=== PATIENT | male | born 1945 | race Caucasian/White ===

== ENCOUNTER 2017-11-10 08:24 | Emergency (ER) | payer MEDICARE ==
[2017-11-10] MEDS ORDERED: LIDOCAINE VISCOUS 2% 15 ML UDC MM STA (08:38)
[2017-11-10] MEDS ORDERED: MAG HYDROX/AL HYDROX/SIMETH 30 ML UDC PO STA (08:38)
--- NOTE | 2017-11-10 08:41 | ED Physician Documentation ---
PD HPI ABD PAIN - Stated complaint Stated Complaint: ABD PX - Chief complaint Chief Complaint: Abd Pain - History obtained from History obtained from: Patient, Family - History of Present Illness Timing - onset: Enter time (429), Today Timing - duration: Hours Timing - details: Abrupt onset, Still present Quality: Sharp, Pain Location: RUQ, Epigastric, LUQ Radiation: Upper back Improved by: Laying still Worsened by: Moving, Breathing, Position, Palpation Associated symptoms: Nausea Similar symptoms before: Diagnosis (gastritis and atypical chest pain) Review of Systems Constitutional: denies: Fever Eyes: denies: Decreased vision Ears: denies: Ear pain Nose: denies: Congestion Throat: denies: Sore throat Cardiac: denies: Chest pain / pressure, Palpitations Respiratory: denies: Dyspnea, Cough GI: reports: Abdominal Pain, Nausea. denies: Vomiting, Constipation, Diarrhea : denies: Dysuria, Frequency Skin: denies: Rash, Lesions Musculoskeletal: reports: Back pain. denies: Neck pain, Extremity pain PD PAST MEDICAL HISTORY - Past Medical History Past Medical History: Yes Cardiovascular: Hypertension Endocrine/Autoimmune: Type 2 diabetes : Kidney stones - Past Surgical History Past Surgical History: Yes General: Appendectomy Ortho: Other - Present Medications Home Medications: Ambulatory Orders Medication Instructions Recorded Confirmed Lisinopril [Prinivil] 10 mg PO 04/30/16 Metformin HCl 1,000 mg PO 04/30/16 Omeprazole [PriLOSEC] 20 mg PO DAILY 04/30/16 04/30/16 Testosterone Cypionate 140 mg IM 04/30/16 [Depo-Testosterone] Amox/Clav 875/125 [Augmentin] 1 each PO Q12H #14 tablet 11/10/17 HYDROcod/ACETAM 5/325 [[place] 5/325] 1 - 2 ea PO Q6H PRN #15 tablet 11/10/17 - Allergies Allergies/Adverse Reactions: Allergies Allergy/AdvReac Type Severity Reaction Status Date / Time No Known Drug Allergies Allergy Verified 04/30/16 16:52 - Social History Does the pt smoke?: No Smoking Status: Never smoker Does the pt drink ETOH?: Yes - Immunizations Immunizations are current?: Yes PD ED PE NORMAL - Vitals Vital signs reviewed: Yes (hypertensive ) - General General: Alert and oriented X 3, Well developed/nourished, Other (72 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 ) - HEENT HEENT: Atraumatic, PERRL, EOMI - Neck Neck: Supple, no meningeal sign - Cardiac Cardiac: RRR, No murmur - Respiratory Respiratory: No respiratory distress, Clear bilaterally - Abdomen Abdomen: Soft, Other (eipgastric and RUQ tenderness to palpation diffuse and not specifically reproducible. ) - Back Back: No CVA TTP, No spinal TTP - Derm Derm: Normal color, Warm and dry, No rash - Extremities Extremities: No deformity, No edema - Neuro Neuro: No motor deficit, No sensory deficit Eye Opening: Spontaneous Motor: Obeys Commands Verbal: Oriented GCS Score: 15 - Psych Psych: Normal mood Results - Vitals Vitals: Vital Signs - 24 hr 11/10/17 11/10/17 11/10/17 08:27 09:22 10:30 Temperature 35.4 C L Heart Rate 52 L 48 L 60 Respiratory 17 18 16 Rate Blood Pressure 186/80 H 168/80 H 152/92 H O2 Saturation 99 98 94 11/10/17 11:35 Temperature Heart Rate 67 Respiratory 18 Rate Blood Pressure 172/89 H O2 Saturation 100 Oxygen O2 Source Room air - EKG (time done) 0857 Rate: Rate (enter#) (52) Rhythm: Sinus bradycardia QRS: LVH Ischemia: Non specific changes Other comments: Other comments (early transition) Compare to prior EKG: Changed from prior EKG (SPT 04-30-16 the rate has increased and the T waves in the inferior leads are flattened. ) Computer interpretation: Agree with computer - Labs Labs: Laboratory Tests 11/10/17 11/10/17 11/10/17 09:00 09:00 09:00 WBC 14.1 H RBC 5.68 Hgb 16.8 Hct 51.2 MCV 90.1 MCH 29.6 MCHC 32.9 RDW 15.1 H Plt Count 221 MPV 8.1 Neut # 11.6 H Lymph # 1.3 L [place] # 0.9 Eos # 0.1 Baso # 0.2 H Absolute Nucleated RBC 0.00 Nucleated RBC % 0.0 Sodium 136 Potassium 4.0 Chloride 99 L Carbon Dioxide 26 Anion Gap 11.0 BUN 23 H Creatinine 1.2 Estimated GFR (MDRD) 60 L Glucose 285 H Calcium 9.2 Total Bilirubin 0.8 AST 27 ALT 23 Alkaline Phosphatase 46 Troponin I < 0.04 Total Protein 7.5 Albumin 4.9 Globulin 2.6 Albumin/Globulin Ratio 1.9 Lipase 18 L - Rads (name of study) ultrasound gallbladder Radiology: Prelim report reviewed (Impression: 1. Cholelithiasis and sludge filling the gallbladder. No definite sonographic evidence of acute cholecystitis. The common bile duct diameter is upper limit of normal for age. 2. No intrahepatic biliary dilation. 3., Diffuse increased echogenicity of the liver consistent with diffuse hepatic steatosis.), EMP read indepedently, See rad report PD MEDICAL DECISION MAKING - ED course Complexity details: reviewed old records, reviewed results, re-evaluated patient , considered differential, d/w patient, d/w family ED course: 72-year-old male with acute abdominal pain has had multiple episodes similar and he has been worked up and gastritis has been found. Here in the emergency department the patient looks uncomfortable and bedside ultrasound shows what appears to be multiple stones in the gallbladder with gallbladder sludge present. Initially he is administered viscous lidocaine Mylanta and has no improvement in his pain. I interpreted this to indicate his pain was not coming from gastritis. He was administered Toradol intravenously with only minimal pain relief and he was subsequently administered hydrocodone and Zofran with good relief of his pain. A formal ultrasound of the gallbladder demonstrated similar findings and there was no evidence of cholecystitis there was no free fluid and no gallbladder wall thickening. The patient's white blood cell count was elevated and in consultation with his primary care doctor antibiotics were prescribed. The patient will follow up with his surgeon at [place]. Departure - Departure Disposition: Home, Self Care Clinical Impression: Gallstones without obstruction of gallbladder Qualifiers: Cholelithiasis location: gallbladder Cholecystitis presence: without cholecystitis Qualified Code(s): K80.20 - Calculus of gallbladder without cholecystitis without obstruction Hyperglycemia due to type 2 diabetes mellitus Qualifiers: Diabetes mellitus senior care insulin use: without terminologist use Qualified Code(s ): E11.65 - Type 2 diabetes mellitus with hyperglycemia Condition: Stable Instructions: ED Hyperglycemia Diabetic, ED Gallstone W Biliary Colic Follow-Up: MICKY ROCA MD [Primary Care Provider] - Prescriptions: Amox/Clav 875/125 [Augmentin] 1 each PO Q12H #14 tablet HYDROcod/ACETAM 5/325 [[place] 5/325] 1 - 2 ea PO Q6H PRN #15 tablet PRN Reason: Pain Discharge Date/Time: 11/10/17 12:11
[2017-11-10] MEDS ORDERED: KETOROLAC 60 MG/2 ML VIAL IVP STA (09:06)
[2017-11-10 09:15] LABS: BASOPHILS # (AUTO) 0.2 10^3/uL (0.0-0.1); BASOPHILS % (AUTO) 1.5 %; EOSINOPHILS # (AUTO) 0.1 10^3/uL (0.0-0.7); EOSINOPHILS % (AUTO) 0.5 %; HGB - HEMOGLOBIN 16.8 g/dL (14.0-18.0); LYMPHOCYTES # (AUTO) 1.3 10^3/uL (1.5-3.5); MEAN CORPUSCULAR HEMOGLOBIN 29.6 pg (27.0-31.0); MEAN CORPUSCULAR HGB CONC 32.9 g/dL (32.0-36.0); MEAN CORPUSCULAR VOLUME 90.1 fL (80.0-94.0); MEAN PLATELET VOLUME 8.1 fL (7.4-11.4); MONOCYTES # (AUTO) 0.9 10^3/uL (0.0-1.0); MONOCYTES % (AUTO) 6.4 %; NEUTROPHILS # (AUTO) 11.6 10^3/uL (1.5-6.6); NEUTROPHILS % (AUTO) 82.6 %; PLT - PLATELET COUNT 221 10^3/uL (130-450); RED BLOOD COUNT 5.68 10^6/uL (4.70-6.10); RED CELL DISTRIBUTION WIDTH 15.1 % (12.0-15.0); WHITE BLOOD COUNT 14.1 x10^3/uL (4.8-10.8)
[2017-11-10] MEDS ORDERED: ONDANSETRON 4 MG/2 ML VIAL IVP STA (09:22)
[2017-11-10] MEDS ORDERED: HYDROmorphone 1 MG/ML SYRINGE IVP STA (09:22)
[2017-11-10 09:26] LABS: ALBUMIN 4.9 g/dL (3.2-5.5); ALBUMIN/GLOBULIN RATIO 1.9 (1.0-2.2); BILIRUBIN,TOTAL 0.8 mg/dL (0.2-1.0); CALCIUM 9.2 mg/dL (8.5-10.3); CREATININE 1.2 mg/dL (0.6-1.2); TOTAL PROTEIN 7.5 g/dL (6.7-8.2)
--- NOTE | 2017-11-10 10:40 | Ultrasound Report ---
EXAM: ABDOMEN ULTRASOUND LIMITED, RUQ EXAM DATE: 11/10/2017 10:09 AM. CLINICAL HISTORY: Right upper quadrant abdominal pain. COMPARISON: CT of the abdomen and pelvis without contrast 09/24/2012. TECHNIQUE: Real-time scanning was performed with static images obtained. FINDINGS: Liver: There is diffuse increased echogenicity of the liver consistent with diffuse fatty infiltratio n. No focal abnormality identified. The right lobe of the liver measures up to 17.2 cm. Main portal v ein flow: Hepatopetal. Gallbladder: The gallbladder is filled with sludge. Multiple small stones are present. No definite wa ll thickening. No sonographic Desouza sign. Biliary System: CBD measures 7.6 mm. No intrahepatic ductal dilatation. Other: No right-sided hydronephrosis. IMPRESSION: 1. Cholelithiasis and sludge filling the gallbladder. No definite sonographic evidence of acute jessa cystitis. 2. The common bile duct diameter is at the upper limit of normal for age. No intrahepatic biliary dil atation. 3. Diffuse increased echogenicity of the liver consistent with diffuse hepatic steatosis. [facility] Referring Provider Line: [phone] SITE ID: [id number]
[2017-11-10 11:36] VITALS: BP 172/89
== END 2017-11-10 12:11 | disposition home or self-care (01) ==
LOC: ED 08:24
DX: K80.20 Calculus of gallbladder without cholecystitis without obstruction (principal); E11.65 Type 2 diabetes mellitus with hyperglycemia; I10 Essential (primary) hypertension; Z79.84 Long term (current) use of oral hypoglycemic drugs
CPT/HCPCS: 36415; 76705; 80053; 83690; 84484; 85025; 93005; 96374; 96375; 99284; A9270; J1170

== ENCOUNTER 2020-10-03 16:37 | Emergency (ER) | payer MEDICARE, OTHER ==
--- NOTE | 2020-10-03 17:02 | ED Physician Documentation ---
History of Present Illness - Stated complaint Stated Complaint: RT HAND LAC - Chief complaint Chief Complaint: Laceration - History obtained from History obtained from: Patient - History of Present Illness Timing: Today Pain level max: 0 Pain level now: 0 - Additonal information Additional information: R middle finger cut on a mandolin. Unable to stop the bleeding. Td UTD. NVI. Better with pressure. Worse with movement. Patient applied a silver nitrate pad at home to the finger. Wrapped the finger tightly and came in for evaluation Review of Systems Constitutional: denies: Fever, Chills Skin: denies: Rash PD PAST MEDICAL HISTORY - Past Medical History Cardiovascular: Hypertension Endocrine/Autoimmune: Type 2 diabetes : Kidney stones - Past Surgical History Past Surgical History: Yes General: Appendectomy Ortho: Other - Present Medications Home Medications: Ambulatory Orders Medication Instructions Recorded Confirmed Lisinopril [Prinivil] 10 mg PO 04/30/16 Metformin HCl 1,000 mg PO 04/30/16 Omeprazole [PriLOSEC] 20 mg PO DAILY 04/30/16 04/30/16 Testosterone Cypionate 140 mg IM 04/30/16 [Depo-Testosterone] Amox/Clav 875/125 [Augmentin] 1 each PO Q12H #14 tablet 11/10/17 HYDROcod/ACETAM 5/325 [[place] 5/325] 1 - 2 ea PO Q6H PRN #15 tablet 11/10/17 - Allergies Allergies/Adverse Reactions: Allergies Allergy/AdvReac Type Severity Reaction Status Date / Time No Known Drug Allergies Allergy Verified 10/03/20 16:49 - Social History Does the pt smoke?: No Smoking Status: Never smoker Does the pt drink ETOH?: Yes - Immunizations Immunizations are current?: Yes PD ED PE NORMAL - Vitals Vital signs reviewed: Yes - General General: Alert and oriented X 3, No acute distress - HEENT HEENT: Moist mucous membranes - Derm Derm: Warm and dry - Extremities Extremities: Other (0.2cm avulsion, shallow to the tip of the R 3rd digit.NVI. No bony injury.) - Neuro Neuro: Alert and oriented X 3 - Psych Psych: Normal mood, Normal affect Results - Vitals Vitals: Vital Signs - 24 hr 10/03/20 10/03/20 16:46 17:35 Temperature 35.9 C L 36.5 C Heart Rate 73 70 Respiratory 16 16 Rate Blood Pressure 170/81 H 150/80 H O2 Saturation 97 99 Oxygen O2 Source Room air Procedures - General procedure General procedure: Finger tourniquet was placed. Wound was cleansed. Silver nitrate removed. Dermabond was applied to seal the wound. The wound was then bandaged and a finger splint placed around the area to protect the wound. Tourniquet was removed prior to bandaging. NVI PD MEDICAL DECISION MAKING - ED course Complexity details: considered differential, d/w patient ED course: Patient with a small fingertip avulsion. Dermabond applied. No further bleeding. Bandaging applied. Warnings of infection and instructions on wound care given at bedside. Also counseled on how to minimize scarring. Patient counseled regarding signs and symptoms for which I believe and urgent re- evaluation would be necessary. Patient with good understanding of and agreement to plan and is comfortable going home at this time This document was made in part using voice recognition software. While efforts are made to proofread this document, sound alike and grammatical errors may occur. Departure - Departure Disposition: 01 Home, Self Care Clinical Impression: Fingertip avulsion Qualifiers: Encounter type: initial encounter Qualified Code(s): S61.209A - Unspecified open wound of unspecified finger without damage to nail, initial encounter Condition: Good Instructions: ED Laceration Amputation Finger Tip Open Tx Follow-Up: Ambreen Delaney MD [Primary Care Provider] - Within 1 week Comments: Keep the wound clean. The glue will fall off on its own. Follow-up with your doctor for further care. Return if you notice redness, swelling or drainage from the wound. Discharge Date/Time: 10/03/20 17:35
[2020-10-03 17:36] VITALS: BP 150/80
== END 2020-10-03 17:35 | disposition home or self-care (01) ==
LOC: ED 16:37
DX: S61.212A Laceration without foreign body of right middle finger without damage to nail, initial encounter (principal); W27.4XXA Contact with kitchen utensil, initial encounter; Y93.G1 Activity, food preparation and clean up; Y92.009 Unspecified place in unspecified non-institutional (private) residence as the place of occurrence of the external cause; I10 Essential (primary) hypertension; E11.9 Type 2 diabetes mellitus without complications; Z79.84 Long term (current) use of oral hypoglycemic drugs
CPT/HCPCS: 99281; 99282

== ENCOUNTER 2020-12-28 08:00 | Outpatient (CLI) | payer MEDICARE, OTHER | END 2020-12-28 23:59 | disposition home or self-care (01) | LOC: LAB.R 08:00 | DX: R19.4 Change in bowel habit (principal) | CPT/HCPCS: 87493 ==

== ENCOUNTER 2022-12-22 22:41 | Outpatient (CLI) | payer MEDICARE, OTHER | END 2022-12-22 23:59 | disposition critical access hospital (66) | LOC: EMS 22:41 | DX: R55 Syncope and collapse (principal); R56.9 Unspecified convulsions; M54.2 Cervicalgia; W18.39XA Other fall on same level, initial encounter; Y92.000 Kitchen of unspecified non-institutional (private) residence as the place of occurrence of the external cause | CPT/HCPCS: A0425; A0427 ==

== ENCOUNTER 2022-12-22 23:00 | Emergency (ER) | payer MEDICARE, OTHER ==
--- NOTE | 2022-12-22 23:03 | ED Physician Documentation ---
PD HPI SYNCOPE - Stated complaint Stated Complaint: SYNCOPE - History obtained from History obtained from: Patient, Family - History of Present Illness Witnessed: Witnessed - Additional information Additional information: BIBA. HPI from patient as well as family (spouse) and EMS. Patient says he was standing in the kitchen at home after having eaten dinner tonight. He describes brief prodrome of generalized weakness and bilateral vision becoming uniform field of white. He says he then next remembers being on the floor with family tending to him. He remembers them helping him up into a chair. Spouse (in ED at bedside) says patient appeared very pale when the event happened, and that he did not fall rapidly to ground, but, rather, rapidly went down whilst helping himself ease to ground by holding on to cabinetry; his descent was fast enough that he did appear to strike the back of his head against a lower cabinet. She says there was not a complete LOC although he did seem less responsive. She also describes spasms of body stiffness but without any sustained tonic stiffness nor any clonic jerking activity. She says the first blood pressure they could measure was 96/54. EMS says they had BP reading of 108/70 on their arrival, with next SBP 102. FSBS 123 per EMS. At the time of this HPI, patient says he feels fine/asymptomatic. He notes mild , dull discomfort right posterior scalp at occiput where he thinks he might have hit the cabinet. He denies h/o similar episode. Denies chest pain, denies shortness of breath. Review of Systems Constitutional: denies: Fever Cardiac: reports: Reviewed and negative Respiratory: reports: Reviewed and negative GI: reports: Reviewed and negative : denies: Dysuria, Frequency, Incontinent Musculoskeletal: reports: Reviewed and negative Neurologic: reports: Near syncope. denies: Focal weakness, Numbness, Confused, Head injury, LOC PD PAST MEDICAL HISTORY - Past Medical History Past Medical History: Yes Cardiovascular: Hypertension - Present Medications Home Medications: Ambulatory Orders Medication Instructions Recorded Confirmed Metformin HCl 1,000 mg PO 04/30/16 Omeprazole [PriLOSEC] 20 mg PO DAILY 04/30/16 04/30/16 Testosterone Cypionate 140 mg IM 04/30/16 [Depo-Testosterone] lisinopriL [Prinivil] 10 mg PO 04/30/16 Amox/Clav 875/125 [Augmentin] 1 each PO Q12H #14 tablet 11/10/17 HYDROcod/ACETAM 5/325 [[place] 5/325] 1 - 2 ea PO Q6H PRN #15 tablet 11/10/17 - Allergies Allergies/Adverse Reactions: Allergies Allergy/AdvReac Type Severity Reaction Status Date / Time No Known Drug Allergies Allergy Verified 12/22/22 23:21 PD ED PE NORMAL - Vitals Vital signs reviewed: Yes - General General: Alert and oriented X 3, No acute distress, Well developed/nourished - HEENT HEENT: Atraumatic, PERRL, EOMI, Moist mucous membranes - Neck Neck: Supple, no meningeal sign - Cardiac Cardiac: RRR, No murmur, No gallop, No rub - Respiratory Respiratory: No respiratory distress, Clear bilaterally - Abdomen Abdomen: Soft, Non tender, Non distended - Derm Derm: Normal color, Warm and dry - Extremities Extremities: No deformity, Normal ROM s pain - Neuro Neuro: Alert and oriented X 3, 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 Relevant findings are: Rate: Rate (enter#) (67) [place]: LAD Intervals: Normal NE QRS: Normal Ischemia: Normal ST segments, Q waves (III, aVF), T wave inversion (III, aVF (flat T wave II), inverted V5, V6), Other (j-point elevation V2, minimal V3) Compare to prior EKG: Other (similar Q waves (III, aVF) and j-point elevations (V2, V3) on 04/30/16, and similar T wave findings on 11/10/17) - Labs Labs: Laboratory Tests 12/22/22 12/22/22 12/22/22 23:08 23:08 23:08 WBC 9.6 RBC 5.21 Hgb 14.6 Hct 45.4 MCV 87.1 MCH 28.0 MCHC 32.2 RDW 14.6 Plt Count 246 MPV 9.5 Neut # (Auto) 6.4 Lymph # (Auto) 2.1 [place] # (Auto) 0.7 Eos # (Auto) 0.2 Baso # (Auto) 0.1 Absolute Nucleated RBC 0.00 Nucleated RBC % 0.0 Sodium 139 Potassium 4.0 Chloride 103 Carbon Dioxide 27 Anion Gap 9.0 BUN 21 H Creatinine 1.4 H Estimated GFR (MDRD) 49 L Glucose 156 H Calcium 9.2 Total Bilirubin 0.5 AST 21 ALT 22 Alkaline Phosphatase 55 Troponin I High Sens 5.6 Total Protein 6.6 L Albumin 3.8 Globulin 2.8 Albumin/Globulin Ratio 1.4 Lipase 36 - Rads (name of study) CTH Relevant Findings:: Prelim report reviewed, EMP independent interpretation of test (I reviewed these images and my interpretation is no evidence of emergent process including SAH, skull fracture, mass/mass effect), See rad report PD Medical Decision Making - ED course Complexity details: reviewed results, re-evaluated patient, considered differential, d/w patient, d/w family ED course: Near-syncopal episode W[employer] WORK[employer] with borderline-low readings in field, although first reading by family was only after patient had recovered from the most prominent/noticeable signs/symptoms. He has no concerning nor diagnostic findings on tonights tests including hs-cTN. CTH without remarkable findings regarding the event or other emergent process (radiology notes incidental finding of opacified left maxillary sinus). Results d/w patient/spouse. Cause of his near-syncope is not apparent at this time. I instructed him to contact his PMD to arrange for next available appointment for reevaluation, and return precautions discussed Departure - Departure Disposition: 01 Home, Self Care Clinical Impression: Syncope Qualifiers: Syncope type: unspecified Qualified Code(s): R55 - Syncope and collapse Condition: Good Instructions: ED Fainting Unkn Cause Comments: There were no concerning or diagnostic findings on tonight's tests. As we discussed, your kidney function tests were mildly elevated (BUN of 21, creatinine of 1.4. I am including these test results here so that you can relay these results to your primary care provider when you follow-up). These kidney function test abnormalities would not explain any symptoms and can be reevaluated by your primary care provider. Contact your primary care provider when their office is next open to arrange for the next available appointment for follow-up. Discharge Date/Time: 12/23/22 02:47
[2022-12-22 23:25] LABS: BASOPHILS # (AUTO) 0.1 10^3/uL (0.0-0.1); BASOPHILS % (AUTO) 0.8 %; EOSINOPHILS # (AUTO) 0.2 10^3/uL (0.0-0.7); EOSINOPHILS % (AUTO) 2.3 %; HCT - HEMATOCRIT 45.4 % (42.0-52.0); HGB - HEMOGLOBIN 14.6 g/dL (14.0-18.0); LYMPHOCYTES # (AUTO) 2.1 10^3/uL (1.5-3.5); LYMPHOCYTES % (AUTO) 22.2 %; MEAN CORPUSCULAR HGB CONC 32.2 g/dL (32.0-36.0); MEAN CORPUSCULAR VOLUME 87.1 fL (80.0-94.0); MEAN PLATELET VOLUME 9.5 fL (7.4-11.4); MONOCYTES # (AUTO) 0.7 10^3/uL (0.0-1.0); MONOCYTES % (AUTO) 6.9 %; NEUTROPHILS # (AUTO) 6.4 10^3/uL (1.5-6.6); NEUTROPHILS % (AUTO) 67.4 %; PLT - PLATELET COUNT 246 10^3/uL (130-450); RED BLOOD COUNT 5.21 10^6/uL (4.70-6.10); RED CELL DISTRIBUTION WIDTH 14.6 % (12.0-15.0); WHITE BLOOD COUNT 9.6 x10^3/uL (4.8-10.8)
[2022-12-23 00:04] LABS: ALBUMIN 3.8 g/dL (3.2-5.5); ALBUMIN/GLOBULIN RATIO 1.4 (1.0-2.2); BILIRUBIN,TOTAL 0.5 mg/dL (0.2-1.0); CALCIUM 9.2 mg/dL (8.5-10.3); CREATININE 1.4 mg/dL (0.6-1.2); TOTAL PROTEIN 6.6 g/dL (6.7-8.2)
--- NOTE | 2022-12-23 00:59 | CT Report ---
PROCEDURE: HEAD WO INDICATIONS: syncope with seizure-like activity, head injury TECHNIQUE: Noncontrast 4.5 mm thick angled axial sections acquired from the foramen magnum to the vertex. For r adiation dose reduction, the following was used: automated exposure control, adjustment of mA and/or kV according to patient size. COMPARISON: None. FINDINGS: Image quality: Excellent. CSF spaces: Basal cisterns are patent. No extra-axial fluid collections. Ventricles are normal in size and shape. Brain: No midline shift. No intracranial masses or hemorrhage. Zelaya-white matter interface is norm al. Skull and face: Calvarium and visualized facial bones are intact, without suspicious lesions. Sinuses: Visualized sinuses and mastoids are clear on the right but there is a small caliber of the left maxillary sinus which appears chronically opacified. IMPRESSION: Hypoplasia of the left maxillary sinus, no acute trauma found. Reviewed by: Dominic Bolanos MD on 12/23/2022 12:58 AM PDT Approved by: Dominic Bolanos MD on 12/23/2022 12:58 AM PDT Station ID: [id number]
[2022-12-23 02:48] VITALS: BP 125/62
== END 2022-12-23 02:47 | disposition home or self-care (01) ==
LOC: EDUNIT# → ED 23:00
DX: R55 Syncope and collapse (principal); R79.89 Other specified abnormal findings of blood chemistry; J34.89 Other specified disorders of nose and nasal sinuses
CPT/HCPCS: 36415; 80053; 83690; 84484; 85025; 93005; 99283; 99284

== ENCOUNTER 2023-06-07 22:38 | Outpatient (CLI) | payer MEDICARE, OTHER | END 2023-06-07 22:39 | disposition short-term general hospital (02) | LOC: EMS 22:38 | DX: R55 Syncope and collapse (principal); I95.9 Hypotension, unspecified; R19.7 Diarrhea, unspecified | CPT/HCPCS: A0425; A0429 ==

== ENCOUNTER 2024-01-23 10:17 | Outpatient (CLI) | payer MEDICARE, OTHER ==
--- NOTE | 2024-01-23 15:21 | XRAY Report ---
PROCEDURE: Foot 3+V LT INDICATIONS: PAIN IN LEFT FOOT, concern for foreign body at BB marker site TECHNIQUE: 3 views of the foot were acquired. COMPARISON: None. FINDINGS: Bones: No fractures or dislocations. No suspicious bony lesions. Tiny retrocalcaneal enthesophyte. Soft tissues: No tibiotalar joint effusion. Achilles tendon appears normal. No radiodense foreign body. IMPRESSION: No acute bony abnormality. No radiodense foreign body. Reviewed by: Dorothy Shea MD, PhD on 01/23/2024 3:20 PM PDT Approved by: Dorothy Shea MD, PhD on 01/23/2024 3:20 PM PDT Station ID: [id number]
== END 2024-01-23 10:18 | disposition home or self-care (01) ==
LOC: DI.S 10:17
PROVIDERS: ATTEND Registered Nurse
DX: M79.672 Pain in left foot (principal)

== ENCOUNTER 2024-05-12 10:45 | Emergency (ER) | payer MEDICARE, OTHER ==
[2024-05-12 11:21] VITALS: O2SAT 100
--- NOTE | 2024-05-12 12:49 | Ultrasound Report ---
PROCEDURE: Duplex Ext Veins Right INDICATIONS: swelling/pain 2wks post-op TECHNIQUE: Real-time imaging, as well as color and pulse Doppler interrogation, were performed of the lower extr emity deep veins from the inguinal ligament to the popliteal fossa. Attempted visualization of the ca lf veins was performed. COMPARISON: None. FINDINGS: The deep veins are normally compressible, and free of intraluminal thrombus. Color and pu lse Doppler demonstrate normal phasic intraluminal flow. There is normal augmentation response to di stal compression maneuver. IMPRESSION: No deep venous thrombosis of the right lower extremity. Reviewed by: Alexei Ludwig MD on 05/12/2024 12:47 PM PDT Approved by: Alexei Ludwig MD on 05/12/2024 12:47 PM PDT Station ID: [id number]
--- NOTE | 2024-05-12 12:59 | ED Physician Documentation ---
History of Present Illness - Stated complaint Stated Complaint: RT LEG SWELLING, TENDERNESS - Chief complaint Chief Complaint: Ext Problem - Additonal information Additional information: Patient is a 78-year-old male presenting to the emergency department after having right knee arthroplasty performed about [address] Carlson. Patient was Given Keflex for a week postsurgery. He notes he was doing fine until 3 days ago he developed worsening leg swelling. He notes around this time he also was not wearing his compression stocking as much and had been working on walking and bearing weight on his right leg. He denies any fevers or chills no discharge from the wound. No significant redness to his leg. Patient went to physical therapy today they instructed him to have ultrasound of his right leg he called his orthopedic PA and they agreed with this assessment without seeing patient.Patient denies any chest pain or shortness of breath with his symptoms. He has been taking aspirin and Plavix with his symptoms as well. PD PAST MEDICAL HISTORY - Past Medical History Past Medical History: Yes Cardiovascular: Hypertension, Coronary artery disease, Arrhythmia Respiratory: None Neuro: None Endocrine/Autoimmune: Type 2 diabetes GI: None : Kidney stones HEENT: None Psych: None Musculoskeletal: None Derm: None - Past Surgical History Past Surgical History: Yes General: Cholecystectomy, Appendectomy Ortho: Other Cardiovascular: Pacemaker - Present Medications Home Medications: Ambulatory Orders Medication Instructions Recorded Confirmed Metformin HCl 1,000 mg PO 04/30/16 Omeprazole [PriLOSEC] 20 mg PO DAILY 04/30/16 04/30/16 Testosterone Cypionate 140 mg IM 04/30/16 [Depo-Testosterone] lisinopriL [Prinivil] 10 mg PO 04/30/16 Amox/Clav 875/125 [Augmentin] 1 each PO Q12H #14 tablet 11/10/17 HYDROcod/ACETAM 5/325 [[place] 5/325] 1 - 2 ea PO Q6H PRN #15 tablet 11/10/17 Compress.stocking,Knee,Reg,Med 1 each MC DAILY #1 each 05/12/24 [T.e.d. Anti-Embolism Stocking] - Allergies Allergies/Adverse Reactions: Allergies Allergy/AdvReac Type Severity Reaction Status Date / Time No Known Drug Allergies Allergy Verified 05/12/24 11:06 - Social History Does the pt smoke?: No Smoking Status: Never smoker Does the pt drink ETOH?: Yes ETOH Use: Wine Does the pt have substance abuse?: No - Immunizations Immunizations are current?: Yes - POLST Patient has POLST: No PD ED PE NORMAL - Vitals Vital signs reviewed: Yes - General General: Alert and oriented X 3 - HEENT HEENT: Atraumatic - Neck Neck: Supple, no meningeal sign - Cardiac Cardiac: RRR, No murmur, No gallop, No rub - Respiratory Respiratory: No respiratory distress, Clear bilaterally - Abdomen Abdomen: Normal bowel sounds - Male Male : Deferred - Rectal Rectal: Deferred - Derm Derm: Normal color, Other - Extremities Extremities: Other (Findings here in the emergency department show no significant redness but warmth noted to right leg compared to left leg. Patient does have calf tenderness on right leg but compartments are soft. Pulses intact distally. There is appears to be some ecchymosis around digits 1-5 given good cap refil) - Neuro Neuro: Alert and oriented X 3 Eye Opening: Spontaneous Motor: Obeys Commands Verbal: Oriented GCS Score: 15 - Psych Psych: Normal mood, Normal affect Results - Vitals Vitals: Vital Signs - 24 hr 05/12/24 11:06 Temperature 36.3 C L Heart Rate 60 Respiratory 16 Rate Blood Pressure 142/75 H O2 Saturation 100 Oxygen O2 Source Room air PD Medical Decision Making - ED course ED course: Patient is a 78-year-old male presenting to the emergency department after having right knee arthroplasty performed about [address] Carlson. Patient was Given Keflex for a week postsurgery. He notes he was doing fine until 3 days ago he developed worsening leg swelling. He notes around this time he also was not wearing his compression stocking as much and had been working on walking and bearing weight on his right leg. He denies any fevers or chills no discharge from the wound. No significant redness to his leg. Patient went to physical therapy today they instructed him to have ultrasound of his right leg he called his orthopedic PA and they agreed with this assessment without seeing patient.Patient denies any chest pain or shortness of breath with his symptoms. He has been taking aspirin and Plavix with his symptoms as well. Findings here in the emergency department show no significant redness but warmth noted to right leg compared to left leg. Patient does have calf tenderness on right leg but compartments are soft. Pulses intact distally. There is appears to be some ecchymosis around digits 1 through 5 but good capillary refill and full range of motion of right ankle intact. No palpable inguinal lymphadenopathy. No posterior popliteal leg tenderness. DP and PT pulses 2+ equal bilaterally. FINDINGS: The deep veins are normally compressible, and free of intraluminal thrombus. Color and pulse Doppler demonstrate normal phasic intraluminal flow. There is normal augmentation response todistal compression maneuver. IMPRESSION: No deep venous thrombosis of the right lower extremity. Ultrasound findings reassuring here in emergency department. Discussed with patient symptoms of leg swelling most likely secondary to not wearing his compression stocking elevating his leg as he should be. Instructed patient we will send new compression stocking to his pharmacy that we will go up his leg to prevent worsening swelling. And have him follow-up with his orthopedic surgeon within the next 1 to 2 weeks. Patient continues on aspirin and Plavix. He has no other past medical history of DVT/PE. Low suspicion for infection as pain appears to be improving for patient and swelling most likely secondary to not wearing compression stocking or elevating at home additionally no signs of redness around incision site and no signs of discharge or dehiscence of wound and patient is able to flex and extend right knee. He is also able to bear weight on it low suspicion for infection but he was given strict return precautions if he develops any fevers worsening pain swelling streaking up the leg worsening difficulty walking. Patient understands and is agreeable with this plan. Departure - Departure Disposition: 01 Home, Self Care Clinical Impression: Right leg swelling, Pain in extremity, Pain of lower extremity Condition: Good Prescriptions: Compress.stocking,Knee,Reg,Med [T.e.d. Anti-Embolism Stocking] 1 each MC DAILY #1 each Comments: You were seen here in the emergency department for your right leg swelling. Your workup here showed no signs of clot in your right leg. You should continue with aspirin and Plavix at home and keep leg elevated iced and use compression stocking. I have sent a new one to your pharmacy. Please follow-up with the orthopedic physician in the outpatient setting to ensure resolution of symptoms. If you develop any redness to your right leg warmth discharge from the site worsening pain fevers you should return immediately to the emergency department. If your pain in your calf and the swelling persist you may need repeat ultrasound to ensure no signs of clot. Follow-up with your orthopedic surgeon for these repeat imaging. Return with any other new or worsening symptoms. Forms: PCP List
[2024-05-12 13:35] VITALS: BP 137/70
== END 2024-05-12 13:32 | disposition home or self-care (01) ==
LOC: ED 10:45
DX: M79.661 Pain in right lower leg (principal); M79.89 Other specified soft tissue disorders; Z96.651 Presence of right artificial knee joint; I10 Essential (primary) hypertension; I25.10 Atherosclerotic heart disease of native coronary artery without angina pectoris; E11.9 Type 2 diabetes mellitus without complications
CPT/HCPCS: 99283; 99284

== ENCOUNTER 2024-06-01 13:05 | Outpatient (CLI) | payer MEDICARE, OTHER ==
[2024-06-01 20:41] LABS: ALBUMIN 4.4 g/dL (3.2-5.5); ALBUMIN/GLOBULIN RATIO 2.1 (1.0-2.2); ALKALINE PHOSPHATASE 198 IU/L (42-121); ALT ALANINE AMINOTRANSFERASE 117 IU/L (10-60); AST ASPARTATE AMINOTRANSFERASE 40 IU/L (10-42); BUN - BLOOD UREA NITROGEN 25 mg/dL (6-20); CALCIUM 9.8 mg/dL (8.5-10.3); CARBON DIOXIDE - CO2 28 mmol/L (21-32); CHLORIDE 101 mmol/L (101-111); CHOL/HDL RATIO 2.4 (<5.0); CHOLESTEROL 124 mg/dL; CREATININE 1.2 mg/dL (0.6-1.3); GFR - MDRD 59 (>89); GLUCOSE 227 mg/dL (74-104); HDL CHOLESTEROL 51 mg/dL; LDL CHOLESTEROL,CALCULATED 37 mg/dL; LDL/HDL RATIO 0.7 (<3.6); POTASSIUM 5.3 mmol/L (3.5-4.5); SODIUM 134 mmol/L (135-145); TOTAL PROTEIN 6.5 g/dL (6.4-8.9); TRIGLYCERIDES 181 mg/dL; VLDL CHOLESTEROL 36 mg/dL
[2024-06-01 21:09] LABS: ESTIMATED AVERAGE GLUCOSE 157 mg/dL (70-100); HEMOGLOBIN A1c% 7.1 % (4.27-6.07)
== END 2024-06-01 13:06 | disposition home or self-care (01) ==
LOC: LAB.S 13:05
PROVIDERS: ATTEND Family Medicine
DX: E11.65 Type 2 diabetes mellitus with hyperglycemia (principal); E11.69 Type 2 diabetes mellitus with other specified complication; E78.5 Hyperlipidemia, unspecified
CPT/HCPCS: 36415; 80053; 80061; 82043; 82570; 83036; 83721

== ENCOUNTER 2024-06-03 11:26 | Outpatient (CLI) | payer MEDICARE, OTHER ==
[2024-06-03 12:49] LABS: CREATININE,URINE 96.4 mg/dL; MICROALBUM/CREATININE RATIO,UR 9.3 ug/mg (<30.0); MICROALBUMIN,URINE 0.9 mg/dL
== END 2024-06-03 11:27 | disposition home or self-care (01) ==
LOC: LAB 11:26
PROVIDERS: ATTEND Family Medicine
DX: E11.65 Type 2 diabetes mellitus with hyperglycemia (principal)
CPT/HCPCS: 82043; 82570